=== PATIENT | male | born 1980 | race Caucasian/White ===

== ENCOUNTER 2021-11-26 12:48 | Emergency (ER) | payer OTHER ==
[~2021-11-26] VITALS: Ht 177.8 cm; Wt 106.6 kg
[2021-11-26 13:00] VITALS: BP_SYST 119
--- NOTE | 2021-11-26 13:00 | NUR ---
Patient to ER bed H1 to gown for evaluation. Side rails up.
--- NOTE | 2021-11-26 13:10 | NUR ---
BEREKET Epstein at bedside examining patient.
--- NOTE | 2021-11-26 13:30 | NUR ---
PT SLEEPING, FOUND IN FRONT STORE NEXT TO EMPTY BOTTLE OF VODKA.
[2021-11-26] MEDS ORDERED: FOLIC ACID 1 MG, THIAMINE HCL 100 MG, MAGNESIUM SULFATE 1 GM, MVI 10 ML in NACL 0.9% 1,... IV ONE (13:45)
[2021-11-26] MEDS ORDERED: NACL 0.9% 1,000 ML IV ONE (13:45)
[2021-11-26] MEDS ORDERED: THIAMINE HCL 100 MG, MAGNESIUM SULFATE 1 GM in NS 100 ML IV ONE (14:00)
[2021-11-26] MEDS ORDERED: FOLIC ACID 1 MG, MVI 10 ML in NACL 0.9% 1,000 ML IV ONE (14:00)
--- NOTE | 2021-11-26 14:00 | NUR ---
PT ELOPED OUT OF [facility]UL[facility] DOOR
[2021-11-26 14:30] LABS: BASOPHILS % (AUTO) 0.4 % (0.0-2.0); EOSINOPHILS % (AUTO) 0.3 % (0.0-4.0); HEMOGLOBIN 15.7 g/dL (14.0-18.0); LYMPHOCYTES # (AUTO) 2.3 K/uL (1.0-5.5); LYMPHOCYTES % (AUTO) 25.2 % (20.5-51.5); MEAN CORPUSCULAR HEMOGLOBIN 30 pg (27-31); MEAN CORPUSCULAR HGB CONC 35 % (32-36); MEAN CORPUSCULAR VOLUME 87 fL (79.0-98.0); MONOCYTES # (AUTO) 0.3 K/uL (0.0-1.0); MONOCYTES % (AUTO) 3.4 % (1.7-9.3); NEUTROPHILS # (AUTO) 6.4 K/uL (1.8-7.7); NEUTROPHILS % (AUTO) 70.7 % (40.0-70.0); PLATELET COUNT (AUTO) 148 K/uL (130-430); RED BLOOD CELL COUNT(AUTO) 5.18 MIL/uL (4.2-6.2); WHITE BLOOD COUNT (AUTO) 9.1 K/uL (4.8-10.8)
[2021-11-26 14:34] LABS: PROTHROMBIN TIME 10.3 SECS (9.5-12.5)
[2021-11-26 15:23] LABS: POTASSIUM 3.4 mmol/L (3.5-5.1); SODIUM SERUM 139 mmol/L (136-145)
[2021-11-26 15:24] LABS: ALANINE AMINOTRANSFERASE 79 U/L (12-78); ANION GAP 12 (5-15); ASPARTATE AMINOTRANSFERASE 127 U/L (10-37); CALCIUM 7.6 mg/dL (8.4-11.0); CHLORIDE 101 mmol/L (98-107); CREATININE 0.94 mg/dL (0.55-1.30); GFR AFRICAN AMERICAN 114 mL/min (>90); GLUCOSE 174 mg/dL (70-99); TOTAL BILIRUBIN 0.8 mg/dL (0.0-1.0); UREA NITROGEN, BLOOD 7 mg/dL (8-21)
[2021-11-26 15:25] LABS: ACETAMINOPHEN < 1 ug/mL (1-30); ALBUMIN 3.8 g/dL (3.4-4.8)
== END 2021-11-26 14:00 | disposition left against medical advice (07) ==
LOC: SED 12:48
DX: F10.129 Alcohol abuse with intoxication, unspecified (principal); K70.9 Alcoholic liver disease, unspecified; Y90.6 Blood alcohol level of 120-199 mg/100 ml
CPT/HCPCS: 36415; 80053; 82962; 83605; 83735; 84484; 85025; 85610; 85730; 87040; 99283; G0480; G0481; J3411; J3475; J3490; J7030